=== PATIENT | female | born 1990 | race Caucasian/White ===

== ENCOUNTER 2021-08-03 08:12 | Emergency (ER) | payer OTHER, SELFPAY ==
[2021-08-03 08:20] VITALS: BP 172/115; PULSE 96; RESP 20; TEMP 36.1; O2SAT 100
--- NOTE | 2021-08-03 08:40 | ED.EAR ---
HPI - Ear Problem General Chief complaint: Ear Stated complaint: Ear complaint Time Seen by Provider: 08/03/21 08:30 Source: patient and RN notes reviewed Mode of arrival: ambulatory Limitations: no limitations History of Present Illness HPI Narrative: Patient presents today complaining of bilateral ear pain and fullness since last night, left greater than right with decreased hearing. For the last week she complains of sinus pressure, nasal congestion, and postnasal drip. The symptoms have been improving. Denies fever. She has been using Mucinex severe with Tylenol as well as applying essential oils around her ears with some relief. No recent antibiotic use. MD Complaint: ear pain and decreased hearing Related Data Home Medications Medication Instructions Recorded Confirmed norethindrone 1 mg-ethinyl 1 tablet PO DAILY 03/19/20 08/03/21 estradiol 20 mcg (21)-iron 75 mg (7) tablet Allergies Allergy/AdvReac Type Severity Reaction Status Date / Time No Known Allergies Allergy Verified 08/03/21 08:30 Review of Systems Review of Systems: CONSTITUTIONAL: Denies body aches, fever, chills, or sweats. EYES: Denies visual changes, redness, or discharge. ENT: Denies rhinorrhea, congestion, sore throat. + Bilateral ear pain, fullness decreased hearing CARDIOVASCULAR: Denies chest pain, palpitations, or edema. RESPIRATORY: Denies cough or dyspnea. GASTROINTESTINAL: Denies abdominal pain, nausea, vomiting, or diarrhea. GENITOURINARY: Denies dysuria or hematuria. SKIN: Denies rash, itching, or wounds. MUSCULOSKELETAL: Denies back pain, joint pain, or myalgia. NEUROLOGIC: Denies headache, numbness, tingling, or weakness. PSYCH: Denies depression or anxiety. [facility] Past Medical History Medical History Migraine Family History Family History Grandparent Diabetes mellitus Heart disease Glaucoma Sibling Hypertension Social History Social History Smoking status: Never smoker Alcohol intake: never Comments At time of signature, I have reviewed and agree with nursing past medical, surgical, social and family history unless otherwise noted. Please see nursing chart for further information. There is no relevant family history pertinent to the presenting complaint Exam Narrative: GENERAL: Well-appearing, well-nourished, and in no acute distress. HEAD: Normocephalic, atraumatic. EYES: EOMI. No redness or drainage. Conjunctivae normal. ENT: Mucous membranes pink and moist. Nares clear. No rhinorrhea. Right TM normal. Left TM erythematous and bulging with purulent material. Throat normal. Uvula midline. NECK: Normal AROM. Supple. No lymphadenopathy. CHEST: No respiratory distress. Clear to auscultation. HEART: Regular rate and rhythm. No murmur appreciated. Normal peripheral pulses. EXTREMITIES: Normal range of motion. No edema. SKIN: Warm, dry, no rash. Capillary refill normal. Normal skin turgor. NEURO: No focal deficits. Alert and oriented x3. Gait steady. PSYCH: Normal affect. No signs of depression or anxiety. Course Vital Signs Vital signs: Vital Signs Temperature 97 F L 08/03/21 08:20 Pulse Rate 96 08/03/21 08:20 Respiratory Rate 20 08/03/21 08:20 Blood Pressure 172/115 H 08/03/21 08:20 Pulse Oximetry 100 08/03/21 08:20 Temperature 97 F L 08/03/21 08:20 Pulse Rate 96 08/03/21 08:20 Respiratory Rate 20 08/03/21 08:20 Blood Pressure 172/115 H 08/03/21 08:20 Pulse Oximetry 100 08/03/21 08:20 Reviewed. Pt has been instructed to follow up with her PCP regarding her elevated blood pressure today. Patient states her is pseudoephedrine and her Mucinex. She has been instructed to stop it. Medical Decision Making Differential Diagnosis Differential Diagnosis: Otitis media, otitis ext
== END 2021-08-03 08:47 | disposition home or self-care (01) ==
PROVIDERS: Emergency Provider Nurse Practitioner; PCP Family Medicine
DX: H66.002 Acute suppurative otitis media without spontaneous rupture of ear drum, left ear (principal)
CPT/HCPCS: 99213; G0463

== ENCOUNTER 2022-01-21 21:04 | Emergency (ER) | payer OTHER, SELFPAY ==
--- NOTE | ~2022-01-21 | CT_ITS ---
EXAMINATION: CT brain wo con DATE: 01/21/2022 22:10 INDICATION: Headache for 2 weeks, mainly on the left side. TECHNIQUE: Computed tomography (CT) of the head was performed without intravenous contrast. The mA wa s adjusted according to patient size. Iterative reconstruction technique was employed. Exam dose: 60 5.33 mGy-cm total exam DLP. COMPARISON: None FINDINGS: No intracranial mass lesion or hemorrhage or cerebrovascular accident. No midline shift or mass effect. Normal ventricular size. Normal cespedes-white matter differentiation. No subdural or epidural hematoma. No fracture or bone destruction of the cranial vault. Included paranasal sinuses and mastoid air cells are unremarkable. IMPRESSION: Negative Reviewed, dictated and finalized at [facility]. Reviewed, dictated and finalized at [facility]. IMPRESSION: Negative
--- NOTE | ~2022-01-21 | XR_ITS ---
XR chest 2V DATE: 01/21/2022 22:13 INDICATION: Hypertension TECHNIQUE: PA and lateral COMPARISON: None FINDINGS: Normal heart size. No hilar or mediastinal enlargement. No pulmonary infiltrate or consolid ation, pleural effusion or pulmonary vascular congestion or pneumothorax. Included skeletal structure s are unremarkable. No intraperitoneal free air is evident. IMPRESSION: Negative Reviewed, dictated and finalized at [facility]. IMPRESSION: Negative
[2022-01-21 21:17] VITALS: BP 207/133; PULSE 99; RESP 18; TEMP 37.1; O2SAT 99
--- NOTE | 2022-01-21 21:47 | ECG_ITS ---
Measurements Intervals [place] Rate: 83 P: 60 WI: 147 QRS: 25 QRSD: 101 T: -1 QT: 376 QTc: 443 Interpretive Statements SINUS RHYTHM BASELINE ARTIFACT V3 AND V4 OTHERWISE NORMAL ECG NO PREVIOUS ECG AVAILABLE FOR COMPARISON Electronically Signed On 01-22-2022 16:03:39 CDT by Sonido Buckley M.D.
[2022-01-21 21:56] VITALS: BP 174/119; PULSE 92; RESP 10; O2SAT 97
[2022-01-21 22:01] LABS: Basophils Absolute Auto 0.1 K/mm3 (0.0-0.1); Basophils Percent Auto 0.9 % (0.2-1.2); Eosinophils Absolute Auto 0.3 K/mm3 (0-0.3); Eosinophils Percent Auto 2.9 % (0-4.4); Hematocrit 38.2 % (37.0-47.0); Hemoglobin 12.8 g/dL (12.0-15.0); Immature Granulocyte Absolute 0.02 K/mm3 (0.00-0.031); Immature Granulocyte Percent A 0.2 % (0-0.5); Lymphocytes Absolute Auto 3.02 K/mm3 (0.9-3.2); Lymphocytes Percent Auto 33.3 % (18.3-44.2); Mean Corpuscular HGB Conc 33.5 g/dl (32-36); Mean Corpuscular Hemoglobin 28.9 pg (26-34); Mean Corpuscular Volume 86.2 fl (80-100); Mean Platelet Volume 9.4 fl (7.4-10.4); Monocytes Absolute Auto 0.7 K/mm3 (0.1-0.6); Monocytes Percent Auto 7.3 % (2.6-8.5); Neutrophils Percent Auto 55.4 % (45.5-73.1); Platelet Count Result 341 k/mm3 (150-375); Red Blood Count 4.43 M/mm3 (4.2-5.4); White Blood Count 9.1 K/mm3 (4.5-10.0)
[2022-01-21 22:12] LABS: Alanine Aminotransferase 17 U/L (4-35); Albumin Level 4.2 g/dL (3.5-5.1); Alkaline Phosphatase 76 U/L (38-126); Anion Gap 5 mmol/L (8-16); Aspartate Amino Transferase 24 U/L (14-36); Bilirubin,Total 0.4 mg/dL (0.2-1.3); Blood Urea Nitrogen 18 mg/dL (7-17); Calcium 9.4 mg/dL (8.4-10.2); Carbon Dioxide 30 mmol/L (22-30); Chloride 105 mmol/L (98-107); Estimated CRCL calculation 97 ml/min; Estimated Glomerular Filt Rate > 60; Glucose 127 mg/dL (65-110); Lipase 125 U/L (23-300); Potassium 3.2 mmol/L (3.4-5.0); Sodium 140 mmol/L (137-145)
[2022-01-21] MEDS: METOCLOPRAMIDE HCL INJ 10 MG/2 ML VIAL IV PUSH (22:16)
[2022-01-21] MEDS: diphenhydrAMINE HCl INJ 50 MG/ML VIAL 25 MG IV PUSH (22:16)
[2022-01-21] MEDS: SODIUM CHLORIDE 0.9% IV 1,000 ML 999 ML IV CONT (22:16)
[2022-01-21 22:22] LABS: Troponin I < 0.012 ng/mL (0.000-0.034)
[2022-01-21 22:26] LABS: Prothrombin Time 12.3 Seconds (11.1-14.7)
[2022-01-21 22:27] LABS: Partial Thromboplastin Time 31.5 SECONDS (22.3-36.8)
[2022-01-21 23:16] VITALS: BP 161/109; PULSE 83; RESP 14; O2SAT 97
[2022-01-21] MEDS: POTASSIUM CHLORIDE 20 MEQ PACKET (FOR LIQUID) 40 MEQ PO (23:28)
[2022-01-21] MEDS: hydrALAZINE HCL 20 MG/ML VIAL 10 MG IV PUSH (23:43)
[2022-01-21 23:54] LABS: SARS-CoV-2 RNA PCR Negative
--- NOTE | 2022-01-21 23:54 | ED.HA ---
HPI - Headache General Chief Complaint: Headache Stated Complaint: high blood pressure/headache Time Seen by Provider: 01/21/22 22:00 Source: patient Mode of arrival: ambulatory Limitations: no limitations History of Present Illness HPI Narrative: 31-year-old female presents today with complaints of headache for 2 weeks. Patient currently rates pain 2 out of a 10 but it is persistent and annoying. Patient denies any nausea, vomiting, sensitivity to light. Patient states she normally gets a headache around the time of her menstrual period which was 3 weeks ago. She is normally able to take 2 ibuprofen and the pain is resolved. Patient has been using ibuprofen without relief. Patient denies shortness of breath, chest pain, visual changes. Related Data Home Medications Medication Instructions Recorded Confirmed norethindrone 1 mg-ethinyl 1 tablet PO DAILY 03/19/20 08/03/21 estradiol 20 mcg (21)-iron 75 mg (7) tablet Allergies Allergy/AdvReac Type Severity Reaction Status Date / Time No Known Allergies Allergy Verified 01/21/22 21:20 Review of Systems Review of Systems: CONSTITUTIONAL: Denies fever, chills, or sweats. EYES: Denies visual changes, redness, or discharge. ENT: Denies rhinorrhea, congestion, sore throat, or otalgia. CARDIOVASCULAR: Denies chest pain, palpitations, or edema. RESPIRATORY: Denies cough or dyspnea. GASTROINTESTINAL: Denies abdominal pain, nausea, vomiting, or diarrhea. GENITOURINARY: Denies dysuria or hematuria. SKIN: Denies rash or itching. MUSCULOSKELETAL: Denies back pain, joint pain, or myalgia. NEUROLOGIC: Headache for 2 weeks. Denies numbness, dizziness, or weakness. PSYCHIATRIC: Denies anxiety or depression. [facility] Past Medical History Medical History Migraine Family History Family History Grandparent Diabetes mellitus Heart disease Glaucoma Sibling Hypertension Social History Social History Smoking status: Never smoker Alcohol intake: never Exam Narrative: GENERAL: Well-appearing, well-nourished, and in no acute distress. HEAD: Normocephalic, atraumatic. EYES: PERRLA and EOMI. ENT: Nares clear, no rhinorrhea or epistaxis. Mucous membranes moist. Oropharynx without tonsillar hypertrophy exudate or other lesions. Bilateral TMs pearly cespedes nonbulging NECK: Supple. No adenopathy or masses. No carotid bruits or JVD CHEST: Clear to auscultation. No respiratory distress. No wheezes rales or rhonchi HEART: Regular rate and rhythm. No murmur heard. Normal peripheral pulses. ABDOMEN: Soft, nontender, nondistended, normal active bowel sounds. EXTREMITIES: Normal range of motion. No edema. SKIN: Warm, dry, no rash. NEURO: No focal deficits. Alert and oriented x3. PSYCH: Normal mood and affect. Course Course Emergency Course: 31-year-old female presents today with complaints of headache for 2 weeks. Upon arrival patient blood pressure 207/33 patient rating pain 2-3 out of a 10. Cardiac work-up initiated, patient took 3 ibuprofen prior to arrival, IV fluids ordered, Benadryl, and Reglan. Head CT negative for acute process, chest x-ray clear, potassium 3.240 mEq p.o. ordered. Patient still with hypertension after medication. Hydralazine ordered. BP came down to 165/101. Plan discharge home on lisinopril and follow-up with primary MD. Vital Signs Vital signs: Vital Signs Temperature 37.1 C 01/21/22 21:17 Pulse Rate 99 01/21/22 21:17 Respiratory Rate 18 01/21/22 21:17 Blood Pressure 207/133 H 01/21/22 21:17 Pulse Oximetry 99 01/21/22 21:17 Temperature 37.1 C 01/21/22 21:17 Pulse Rate 95 01/22/22 00:30 Respiratory Rate 18 01/22/22 00:30 Blood Pressure 165/101 H 01/22/22 00:30 Pulse Oximetry 98 01/22/22 00:30 MDM - Headache Differential D
[2022-01-22 00:29] VITALS: BP 169/117; PULSE 88; RESP 18; O2SAT 99
[2022-01-22 00:30] VITALS: BP 165/101; PULSE 95; RESP 18; O2SAT 98
== END 2022-01-22 00:38 | disposition home or self-care (01) ==
PROVIDERS: Emergency Medicine; Emergency Provider Nurse Practitioner Family; PCP Family Medicine
DX: R51.9 Headache, unspecified (principal); I10 Essential (primary) hypertension; Z20.822 Contact with and (suspected) exposure to COVID-19
CPT/HCPCS: 36415; 70450; 71046; 80053; 83690; 84484; 85025; 85610; 85730; 93005; 96361; 96374; 96375; 99285; A9270; C9803; J0360; J1200; J2765; J7030; U0003; U0005

== ENCOUNTER → 2022-02-12 11:32 | Outpatient (CLI) | payer OTHER, SELFPAY ==
--- NOTE | ~2022-02-12 | US_ITS ---
EXAMINATION: US thyroid DATE: 02/12/2022 11:47 INDICATION: Abnormal thyroid function tests. TECHNIQUE: Multiple ultrasound images of the thyroid were obtained. COMPARISON: None. FINDINGS: The right thyroid lobe measures 5.0 x 1.3 x 1.4 cm. The left thyroid lobe measures 4.3 x 1.1 x 1.5 c m. There is normal echotexture and echogenicity throughout the thyroid gland. No discrete nodules id entified. Normal vascular flow is present. IMPRESSION: 1. Normal thyroid. Reviewed, dictated and finalized at [facility]. IMPRESSION: 1. Normal thyroid.
== END ==
PROVIDERS: PCP Nurse Practitioner Gerontology; Visit Provider Nurse Practitioner Gerontology
DX: I10 Essential (primary) hypertension (principal)
CPT/HCPCS: 76536

== ENCOUNTER 2023-06-06 07:59 | Outpatient (CLI) | payer OTHER, SELFPAY ==
--- NOTE | ~2023-06-06 | US_ITS ---
EXAMINATION: US retroperitoneal duplex ltd DATE: 06/06/2023 08:46 INDICATION: hypertension TECHNIQUE: Multiple grayscale, color Doppler, and pulsed Doppler images of the kidneys and renal [place] were obtained. COMPARISON: None. FINDINGS: The aorta peak systolic velocity is 96 cm/s. Right kidney measures 12.4 x 4.4 x 5.0 cm and the left k idney measures 10.4 x 4.8 x 4.3 cm. Both kidneys demonstrate normal echogenicity with no hydronephros is. The right renal artery peak systolic velocity is 64 cm/s in the proximal segment, 70 cm/s in the mid segment, and 41 cm/s in the distal segment. The left renal artery peak systolic velocity is 53 cm /s in the proximal segment, 71 cm/s in the mid segment, and 43 cm/s in the distal segment. IMPRESSION: 1. No Doppler evidence of renal artery stenosis. Reviewed, dictated and finalized at [facility].
== END 2023-06-06 08:00 | disposition home or self-care (01) ==
LOC: ANHIMG 08:00
PROVIDERS: PCP Family Medicine; Visit Provider Internal Medicine
DX: I10 Essential (primary) hypertension (principal)
CPT/HCPCS: 93976

== ENCOUNTER 2023-09-20 08:49 | Outpatient (CLI) | payer OTHER, SELFPAY ==
--- NOTE | ~2023-09-20 | MMUS_ITS ---
EXAMINATION: MM diagnostic moise BI w osei, US breast LT limited HISTORY: Skin retraction in the upper outer quadrant of the left breast TECHNIQUE: Craniocaudal, mediolateral, and mediolateral oblique 3-D tomosynthesis images of the breas ts were performed and synthetic 2-D images were generated. CAD analysis was submitted and interpreted . High resolution limited left breast ultrasound was performed. COMPARISON: None, baseline BREAST PARENCHYMAL COMPOSITION: There are scattered areas of fibroglandular density. FINDINGS: MAMMOGRAPHIC FINDINGS: Right breast: No suspicious mass, calcification, or architectural distortion are identified to sugges t malignancy. Left breast: There is focal asymmetry in the middle third of the upper outer quadrant of the left anastasiia ast at the 2:00 location in the area of clinical concern. No definite mass, calcification, or archite ctural distortion are identified. ULTRASOUND: No sonographic correlate is identified in the area of clinical concern for left breast. IMPRESSION: 1. Focal asymmetry of the left breast corresponding to the area of clinical concern without definite suspicious mammographic or sonographic correlate. Given the presence of symptoms at this location, br east surgical evaluation is recommended. 2. Recommend 6 month follow-up left diagnostic mammogram and possible ultrasound. BI-RADS category 3, probably benign findings. Reviewed, dictated and finalized at location [facility]. [facility] IMPRESSION: 1. Focal asymmetry of the left breast corresponding to the area of clinical con cern without definite suspicious mammographic or sonographic correlate. Given t he presence of symptoms at this location, breast surgical evaluation is recomme nded. 2. Recommend 6 month follow-up left diagnostic mammogram and possible ultrasoun d. BI-RADS category 3, probably benign findings.
== END 2023-09-20 08:50 ==
LOC: MICIMG 08:50
PROVIDERS: PCP Nurse Practitioner; Visit Provider Nurse Practitioner
DX: N64.89 Other specified disorders of breast (principal)
CPT/HCPCS: 76642; 77062; 77066; G0279